=== PATIENT | female | born 1975 | race African-American/Black ===

== ENCOUNTER 2016-04-03 09:06 | Outpatient (CLI) | payer OTHER ==
--- NOTE | 2016-04-03 12:54 | Mammography Report ---
BILATERAL DIGITAL DIAGNOSTIC MAMMOGRAM with CAD and RIGHT BREAST ULTRASOUND: 04/03/16 CLINICAL: A right breast lump felt on clinical breast exam. COMPARISON:02/03/14 FINDINGS: The breasts are heterogeneously dense, which may obscures small masses in the breasts are sufficiently dense to limit the sensitivity of mammography.No mammographic abnormality in the upper-outer quadrant of the right breast where a lump was felt. A few new calcifications in the upper inner left breast have benign morphology. Ultrasound of the upper outer right breast was performed and demonstrated normal fibroglandular structures. No mass, cyst or shadowing. IMPRESSION: Negative mammogram and negative right breast ultrasound. Benign calcifications of the left breast. BI-RADS CATEGORY: 2 -- Benign RECOMMENDATION: Clinical follow-up of the palpable area in the right breast and routine mammographic screening in one year. ACR BI-RADS MAMMOGRAPHIC CODES: 0 = Needs additional imaging evaluation; 1 = Negative; 2 = Benign; 3 = Probably benign; 4 = Suspicious; 5 = Malignant; 6 = Known biopsy-proven malignancy COMMENT: 1. Dense breast tissue, i.e., adenosis, fibrocystic changes, etc., may obscure an underlying neoplasm. 2. Approximately 10% of cancers are not detected with mammography. 3. A negative mammography report should not delay biopsy if a clinically suspicious mass is present. COMMENT: Patient follow-up letters are generated by our [employer] application.
--- NOTE | 2016-04-03 12:58 | Ultrasound Report ---
BILATERAL DIGITAL DIAGNOSTIC MAMMOGRAM with CAD and RIGHT BREAST ULTRASOUND: 04/03/16 CLINICAL: A right breast lump felt on clinical breast exam. COMPARISON:02/03/14 FINDINGS: The breasts are heterogeneously dense, which may obscures small masses in the breasts are sufficiently dense to limit the sensitivity of mammography.No mammographic abnormality in the upper-outer quadrant of the right breast where a lump was felt. A few new calcifications in the upper inner left breast have benign morphology. Ultrasound of the upper outer right breast was performed and demonstrated normal fibroglandular structures. No mass, cyst or shadowing. IMPRESSION: Negative mammogram and negative right breast ultrasound. Benign calcifications of the left breast.
== END 2016-04-03 09:07 | disposition home or self-care (01) ==
LOC: SPVWC 09:06 → EDSTATUS 09:15
PROVIDERS: ATTEND Obstetrics & Gynecology
DX: N63 Unspecified lump in breast (principal); R92.1 Mammographic calcification found on diagnostic imaging of breast; R92.8 Other abnormal and inconclusive findings on diagnostic imaging of breast
CPT/HCPCS: 76642; G0204; 77066

== ENCOUNTER 2018-05-11 15:57 | Outpatient (CLI) | payer OTHER ==
--- NOTE | 2018-05-12 10:41 | Mammography Report ---
BILATERAL DIGITAL SCREENING MAMMOGRAM with CAD: 05/11/18 15:57:00 CLINICAL: Routine screening. COMPARISON:None. FINDINGS: The breasts are heterogeneously dense, which may obscure small masses.Subtle architectural distortion on the right MLO view requires additional imaging. A few scattered bilateral benign calcifications.No mass. IMPRESSION: Right architectural distortion requiring further workup. BI-RADS CATEGORY: 0 -- Additional Imaging Evaluation Required RECOMMENDATION: Recall for a right diagnostic mammogram to include 3-D tomosynthesis (DBT) and right breast ultrasound if needed. ACR BI-RADS MAMMOGRAPHIC CODES: 0 = Needs additional imaging evaluation; 1 = Negative; 2 = Benign; 3 = Probably benign; 4 = Suspicious; 5 = Malignant; 6 = Known biopsy-proven malignancy COMMENT: 1. Dense breast tissue, i.e., adenosis, fibrocystic changes, etc., may obscure an underlying neoplasm. 2. Approximately 10% of cancers are not detected with mammography. 3. A negative mammography report should not delay biopsy if a clinically suspicious mass is present. COMMENT: Patient follow-up letters are generated via our [email or web address] application.
== END 2018-05-11 15:58 | disposition home or self-care (01) ==
LOC: SPVWC 15:57
PROVIDERS: ATTEND Obstetrics & Gynecology
DX: Z12.31 Encounter for screening mammogram for malignant neoplasm of breast (principal)
CPT/HCPCS: 77067

== ENCOUNTER 2018-05-28 10:01 | Outpatient (CLI) | payer OTHER ==
--- NOTE | 2018-05-28 10:39 | Mammography Report ---
Right tomomammogram and 2-D mammography: Call back for possible right distortion on recent screening mammogram: Orthogonal 2-D mammography images demonstrate a heterogeneous pattern with no obvious distortion on the current exam. Orthogonal tomography also fails to identify any areas of architectural distortion or mass. Impression: Stable exam. Recommendation: Annual mammogram followup. BI-RADS CATEGORY: 1 = Negative ACR BI-RADS MAMMOGRAPHIC CODES: 0 = Needs additional imaging evaluation; 1 = Negative; 2 = Benign; 3 = Probably benign; 4 = Suspicious; 5 = Malignant; 6 = Known biopsy-proven malignancy COMMENT: 1. Dense breast tissue, i.e., adenosis, fibrocystic changes, etc., may obscure an underlying neoplasm. 2. Approximately 10% of cancers are not detected with mammography. 3. A negative mammography report should not delay biopsy if a clinically suspicious mass is present.
== END 2018-05-28 10:02 | disposition home or self-care (01) ==
LOC: SPVWC 10:01
PROVIDERS: ATTEND Obstetrics & Gynecology
DX: R92.2 Inconclusive mammogram (principal)
CPT/HCPCS: 77065; G0279

== ENCOUNTER 2020-12-27 14:55 | Outpatient (CLI) | payer OTHER ==
--- NOTE | 2020-12-29 09:58 | Mammography Report ---
DIGITAL SCREENING MAMMOGRAM WITH CAD, 12/27/2020 CLINICAL INFORMATION / INDICATION: Routine screening mammography. SCREENING MAMMO Z12.31 TECHNIQUE: Digital bilateral 2D mammography was obtained in the craniocaudal and mediolateral obliqu e projections. This examination was interpreted with the benefit of Computer-Aided Detection analysis . COMPARISON: 05/28/2018 and 05/11/2018 FINDINGS: Breast Density: The breasts are extremely dense, which lowers the sensitivity of mammography. No dominant mass or architectural distortion in either breast. There is a cluster of calcifications in the right breast, middle depth, upper outer quadrant. IMPRESSION: Right breast calcifications. Follow up recommendation: Special View: Mag BI-RADS Category 0: Incomplete. Needs additional imaging evaluation and/or prior mammograms for yassine rison. A "normal" or negative report should not discourage follow up or biopsy of a clinically significant f inding. A written summary of these findings will be mailed to the patient. The patient will be entered into a mammography reporting system which will generate a reminder letter for the patient's next appointmen t at the appropriate interval. The [employer] recommends yearly mammograms starting at age 40 and continuing as l aniyah as a woman is in good health. Breast MRI is recommended for women with an approximate 20-25% or greater lifetime risk of breast cancer, including women with a strong family history of breast or ova demetra cancer or who have been treated for Hodgkin's disease. Signer Name: Mani Hoang MD Signed: 12/29/2020 9:53 AM Workstation Name: [email or web address]
== END 2020-12-27 14:56 | disposition home or self-care (01) ==
LOC: SPVWC 14:55
PROVIDERS: ATTEND Obstetrics & Gynecology
DX: Z12.31 Encounter for screening mammogram for malignant neoplasm of breast (principal)
CPT/HCPCS: 77067

== ENCOUNTER 2021-01-31 15:03 | Outpatient (CLI) | payer OTHER ==
--- NOTE | 2021-01-31 15:49 | Mammography Report ---
DIGITAL DIAGNOSTIC MAMMOGRAM WITH CAD , 01/31/2021 CLINICAL INFORMATION / INDICATION: Abnormal right screening mammogram TECHNIQUE: Digital right mammographic imaging was performed. Magnification views were obtained. This examination was interpreted with the benefit of Computer-aided Detection analysis. COMPARISON: 12/27/2020, 09/27/2018 FINDINGS: Breast Density: The breasts are extremely dense, which lowers the sensitivity of mammography. There are 2 clusters of microcalcifications in the upper outer right breast at approximately 10:00, m iddle/posterior depth. The calcifications are fine and heterogeneous. The more anterior cluster spans a distance of approximately 9 mm. There is a second cluster, slightly posterior in position, spannin g a distance of 5 mm. I would recommend stereotactic biopsy of at least one of the clusters of calcif ications to obtain histology. IMPRESSION: There are 2 similar clusters of calcifications in the upper outer right breast. Recommend stereotactic biopsy of at least one of the areas of calcifications. Follow up recommendation: Biopsy BI-RADS Category 4: Suspicious for Malignancy. A "normal" or negative report should not discourage follow up or biopsy of a clinically significant f inding. A written summary of these findings will be mailed to the patient. The patient will be entered into a mammography reporting system which will generate a reminder letter for the patient's next appointmen t at the appropriate interval. According to the [employer], yearly mammograms are recommended starting at age 40 and continuing as long as a woman is in good health. Breast MRI is recommended for women with an jean roximately 20-25% or greater lifetime risk of breast cancer, including women with a strong family his tory of breast or ovarian cancer and women who have been treated for Hodgkin's disease. Signer Name: Leanne Henson MD Signed: 01/31/2021 3:44 PM Workstation Name: [email or web address]
== END 2021-01-31 15:04 | disposition home or self-care (01) ==
LOC: SPVWC 15:03
PROVIDERS: ATTEND Obstetrics & Gynecology
DX: R92.1 Mammographic calcification found on diagnostic imaging of breast (principal)